=== PATIENT | male | born 1950 | race Caucasian/White ===

== ENCOUNTER 2023-10-27 10:23 | Emergency (ER) | payer OTHER ==
[~2023-10-27] VITALS: Ht 175.3 cm; Wt 81.6 kg
[2023-10-27 10:40] VITALS: BP_SYST 154; PULSE 86; RESP 20; TEMP 97.6; O2SAT 98
[2023-10-27] MEDS: KETOROLAC TROMETHAMINE 15 MG VIAL IM ONE (11:03)
[2023-10-27] MEDS ORDERED: TRAM50TA2 PO (13:08)
[2023-10-27 13:16] VITALS: BP_SYST 139; PULSE 77; RESP 18; TEMP 97.6; O2SAT 98
== END 2023-10-27 13:15 | disposition home or self-care (01) ==
LOC: SED 10:23
DX: R25.2 Cramp and spasm (principal); M79.662 Pain in left lower leg; E11.9 Type 2 diabetes mellitus without complications; Z88.6 Allergy status to analgesic agent; Z79.899 Other long term (current) drug therapy
CPT/HCPCS: 99285; 93971; 73552; 96372; J1885